=== PATIENT | male | born 1960 | race Caucasian/White ===

== ENCOUNTER 2022-07-02 13:51 | Inpatient (IN) | payer BC ==
[~2022-07-02] VITALS: Ht 190.5 cm; Wt 63.5 kg
[2022-07-02 13:51] VITALS: BP_SYST 170
[2022-07-02 14:56] LABS: LYMPHOCYTES # (AUTO) 2.1 K/uL (1.0-5.5); MONOCYTES # (AUTO) 0.2 K/uL (0.0-1.0); MONOCYTES % (AUTO) 2.6 % (1.7-9.3); NEUTROPHILS # (AUTO) 6.4 K/uL (1.8-7.7)
[2022-07-02 15:06] LABS: BASOPHILS % (AUTO) 0.4 % (0.0-2.0); EOSINOPHILS # (AUTO) 0.6 K/uL (0.0-0.4); EOSINOPHILS % (AUTO) 6.6 % (0.0-4.0); HEMATOCRIT 54.2 % (36-54); HEMOGLOBIN 18.1 g/dL (14.0-18.0); LYMPHOCYTES % (AUTO) 22.5 % (20.5-51.5); MEAN CORPUSCULAR HEMOGLOBIN 30 pg (27-31); MEAN CORPUSCULAR HGB CONC 33 % (32-36); MEAN CORPUSCULAR VOLUME 90 fL (79.0-98.0); NEUTROPHILS % (AUTO) 67.9 % (40.0-70.0); PLATELET COUNT (AUTO) 211 K/uL (130-430); RED BLOOD CELL COUNT(AUTO) 6.04 MIL/uL (4.2-6.2); WHITE BLOOD COUNT (AUTO) 9.4 K/uL (4.8-10.8)
[2022-07-02 15:24] LABS: ANION GAP 12 (5-15); CALCIUM 9.9 mg/dL (8.4-11.0); CHLORIDE 102 mmol/L (98-107); CREATININE 1.11 mg/dL (0.55-1.30); GLUCOSE 176 mg/dL (70-99); UREA NITROGEN, BLOOD 21 mg/dL (8-21)
[2022-07-02] MEDS ORDERED: NACL 0.9% 1,000 ML IV ONE ×3 (15:30→17:45)
[2022-07-02 15:40] LABS: ALANINE AMINOTRANSFERASE 37 U/L (12-78); ASPARTATE AMINOTRANSFERASE 42 U/L (10-37); C-REACTIVE PROTEIN QUANT 0.6 mg/dL (0-0.5); LACTATE DEHYDROGENASE 264 U/L (85-227); TOTAL BILIRUBIN 0.6 mg/dL (0.0-1.0)
[2022-07-02 15:42] LABS: GFR AFRICAN AMERICAN 86 mL/min (>90)
[2022-07-02] MEDS ORDERED: ALBUTEROL SULFATE 0.083% 2.5 MG/3 ML VIAL.NEB INH ONE ×3 (16:21→19:30)
[2022-07-02] MEDS ORDERED: cefTRIAXone 1 GM VIAL ONE (16:28)
[2022-07-02] MEDS ORDERED: AZITHROMYCIN 500 MG in NS 250 ML IV ONE (16:30)
[2022-07-02] MEDS ORDERED: cefTRIAXone 1 GM in D5W 50 ML IV ONE (16:30)
[2022-07-02] MEDS ORDERED: AZITHROMYCIN 500 MG/VIAL (ZITHROMAX) IV ONE (16:50)
[2022-07-02] MEDS ORDERED: LEVO75TA7 PO (17:28)
[2022-07-02] MEDS ORDERED: *HEPARIN PER PHARMACY XX ONE (17:45)
[2022-07-02 17:52] LABS: INR 1.1 (0.80-1.20); PROTHROMBIN TIME 11.2 SECS (9.5-12.5)
[2022-07-02] MEDS ORDERED: HEPARIN 25,000 UNITS/D5W 250ML 250 ML IV ONE (18:00)
[2022-07-02] MEDS ORDERED: HEPARIN SODIUM,PORCINE 5,000 UNITS/ML VIAL IVP ONE (18:00)
[2022-07-02 19:29] LABS: BILIRUBIN,URINE NEGATIVE (NEGATIVE); BLOOD, URINE NEGATIVE (NEGATIVE); CLARITY/URINE CLEAR (CLEAR); COLOR,URINE YELLOW (YELLOW); GLUCOSE,URINE NEGATIVE (NEGATIVE); KETONES,URINE NEGATIVE (NEGATIVE); LEUKOCYTE ESTERASE ,URINE NEGATIVE (NEGATIVE); NITRITE, URINE NEGATIVE (NEGATIVE); PH,URINE 6.5 (5.0-8.0); PROTEIN URINE 2+ (NEGATIVE); UROBILINOGEN,URINE 0.2 (0.2-1.0)
[2022-07-02] MEDS ORDERED: iohexoL 350 mgI/mL, 100 ML INFUS..BTL IV ONE (19:32)
[2022-07-02 19:45] LABS: BACTERIA,URINE None Seen /HPF (None Seen); RBC,URINE NONE SEEN /HPF (0-3); WBC,URINE NONE SEEN /HPF (0-3)
[2022-07-02 19:46] LABS: HYALINE CASTS, URINE 0-10 /LPF (None Seen); MUCUS,URINE None Seen /LPF (None Seen)
[2022-07-02 20:57] VITALS: BP_SYST 104
[2022-07-02 22:35] VITALS: BP_SYST 111
[2022-07-02 23:00] VITALS: BP_SYST 132
[2022-07-03] VITALS (20 sets, daily range): BP systolic 75–132
[2022-07-03 07:01] LABS: BASOPHILS # (AUTO) 0.1 K/uL (0.0-0.2); BASOPHILS % (AUTO) 0.5 % (0.0-2.0); EOSINOPHILS % (AUTO) 0.3 % (0.0-4.0); HEMATOCRIT 40.9 % (36-54); HEMOGLOBIN 13.5 g/dL (14.0-18.0); LYMPHOCYTES # (AUTO) 0.7 K/uL (1.0-5.5); LYMPHOCYTES % (AUTO) 6.8 % (20.5-51.5); MEAN CORPUSCULAR HEMOGLOBIN 30 pg (27-31); MEAN CORPUSCULAR HGB CONC 33 % (32-36); MEAN CORPUSCULAR VOLUME 90 fL (79.0-98.0); MONOCYTES # (AUTO) 0.8 K/uL (0.0-1.0); MONOCYTES % (AUTO) 7.1 % (1.7-9.3); NEUTROPHILS # (AUTO) 9.1 K/uL (1.8-7.7); NEUTROPHILS % (AUTO) 85.3 % (40.0-70.0); PLATELET COUNT (AUTO) 121 K/uL (130-430); RED BLOOD CELL COUNT(AUTO) 4.54 MIL/uL (4.2-6.2); RED CELL DISTRIBUTION WIDTH 13.7 % (9.0-15.0); WHITE BLOOD COUNT (AUTO) 10.7 K/uL (4.8-10.8)
[2022-07-03] MEDS ORDERED: IPRATROPIUM/ALBUTEROL SULFATE 3 ML AMPUL.NEB (DUONEB) ONE ×2 (08:15→15:37)
[2022-07-03 08:32] LABS: ALBUMIN 2.7 g/dL (3.4-4.8); CALCIUM 8.4 mg/dL (8.4-11.0); CREATININE 0.82 mg/dL (0.55-1.30); TOTAL BILIRUBIN 0.7 mg/dL (0.0-1.0)
[2022-07-03] MEDS: AZITHROMYCIN 250 MG in NS 250 ML IV SCH (08:43)
[2022-07-03] MEDS ORDERED: HEPARIN SODIUM,PORCINE 2000 UNITS/0.4 ML BOLUS IVP PRN (09:15)
[2022-07-03] MEDS ORDERED: HEPARIN SODIUM,PORCINE 5,000 UNITS/ML VIAL IV ONE (09:15)
[2022-07-03] MEDS ORDERED: HEPARIN SODIUM,PORCINE 3000 UNITS/0.6 ML BOLUS IVP PRN (09:15)
[2022-07-03] MEDS: HEPARIN 25,000 UNITS/D5W 250ML 250 ML IV PRN (10:05)
[2022-07-03] MEDS: MICAFUNGIN SODIUM 100 MG in NS 100 ML IV SCH (12:19)
[2022-07-03] MEDS ORDERED: PIPERACILLIN/TAZO 3.375/DEX-IS 50 ML IV SCH (14:00)
[2022-07-03] MEDS: CEFEPIME 2 GM in D5W 100 ML IV SCH (19:58)
[2022-07-03] MEDS: IPRATROPIUM/ALBUTEROL SULFATE 3 ML AMPUL.NEB (DUONEB) INH SCH (20:35)
[2022-07-04] VITALS: BP_SYST 112
[2022-07-04] MEDS: IPRATROPIUM/ALBUTEROL SULFATE 3 ML AMPUL.NEB (DUONEB) INH SCH ×4 (01:00→19:47)
[2022-07-04 08:00] VITALS: BP_SYST 153
[2022-07-04 08:39] LABS: BASOPHILS % (AUTO) 0.5 % (0.0-2.0); EOSINOPHILS # (AUTO) 0.1 K/uL (0.0-0.4); HEMATOCRIT 42.3 % (36-54); HEMOGLOBIN 13.9 g/dL (14.0-18.0); LYMPHOCYTES # (AUTO) 0.6 K/uL (1.0-5.5); LYMPHOCYTES % (AUTO) 9.6 % (20.5-51.5); MEAN CORPUSCULAR HEMOGLOBIN 30 pg (27-31); MEAN CORPUSCULAR HGB CONC 33 % (32-36); MEAN CORPUSCULAR VOLUME 90 fL (79.0-98.0); MONOCYTES # (AUTO) 0.7 K/uL (0.0-1.0); MONOCYTES % (AUTO) 10.3 % (1.7-9.3); NEUTROPHILS # (AUTO) 5.1 K/uL (1.8-7.7); NEUTROPHILS % (AUTO) 78.6 % (40.0-70.0); PLATELET COUNT (AUTO) 111 K/uL (130-430); RED CELL DISTRIBUTION WIDTH 13.6 % (9.0-15.0); WHITE BLOOD COUNT (AUTO) 6.4 K/uL (4.8-10.8)
[2022-07-04] MEDS: AZITHROMYCIN 250 MG in NS 250 ML IV SCH (09:00)
[2022-07-04] MEDS: CEFEPIME 2 GM in D5W 100 ML IV SCH ×2 (09:10→21:09)
[2022-07-04] MEDS ORDERED: NALOXONE HCL 0.4 MG/ML AMP (NARCAN) IVP PRN (10:15)
[2022-07-04] MEDS ORDERED: HYDROcodone/ACETAMIN 5-325 MG TAB (NORCO/ VICODIN) PO PRN (10:15)
[2022-07-04] MEDS: MICAFUNGIN SODIUM 100 MG in NS 100 ML IV SCH (10:48)
[2022-07-04 12:00] VITALS: BP_SYST 116
[2022-07-04 16:00] VITALS: BP_SYST 133
[2022-07-05] MEDS: HEPARIN 25,000 UNITS/D5W 250ML 250 ML IV PRN ×2 (00:32→10:49)
[2022-07-05] MEDS: IPRATROPIUM/ALBUTEROL SULFATE 3 ML AMPUL.NEB (DUONEB) INH SCH ×3 (05:55→21:14)
[2022-07-05 09:12] VITALS: BP_SYST 134
[2022-07-05] MEDS: CEFEPIME 2 GM in D5W 100 ML IV SCH ×2 (09:56→22:46)
[2022-07-05] MEDS: AZITHROMYCIN 250 MG in NS 250 ML IV SCH (10:46)
[2022-07-05 12:43] VITALS: BP_SYST 130
[2022-07-05] MEDS: MICAFUNGIN SODIUM 100 MG in NS 100 ML IV SCH (13:17)
[2022-07-05 16:00] VITALS: BP_SYST 133
[2022-07-05 21:00] VITALS: BP_SYST 152
[2022-07-06] VITALS (7 sets, daily range): BP systolic 119–145
[2022-07-06] MEDS: IPRATROPIUM/ALBUTEROL SULFATE 3 ML AMPUL.NEB (DUONEB) INH SCH ×4 (01:57→19:08)
[2022-07-06 08:31] LABS: CALCIUM 8.7 mg/dL (8.4-11.0); CREATININE 0.74 mg/dL (0.55-1.30)
[2022-07-06 08:59] LABS: BASOPHILS % (AUTO) 0.5 % (0.0-2.0); EOSINOPHILS # (AUTO) 0.2 K/uL (0.0-0.4); EOSINOPHILS % (AUTO) 3.7 % (0.0-4.0); HEMOGLOBIN 13.6 g/dL (14.0-18.0); LYMPHOCYTES # (AUTO) 0.6 K/uL (1.0-5.5); LYMPHOCYTES % (AUTO) 11.9 % (20.5-51.5); MEAN CORPUSCULAR HEMOGLOBIN 29 pg (27-31); MEAN CORPUSCULAR HGB CONC 33 % (32-36); MEAN CORPUSCULAR VOLUME 88 fL (79.0-98.0); MONOCYTES # (AUTO) 0.5 K/uL (0.0-1.0); MONOCYTES % (AUTO) 10.1 % (1.7-9.3); NEUTROPHILS # (AUTO) 3.6 K/uL (1.8-7.7); NEUTROPHILS % (AUTO) 73.8 % (40.0-70.0); PLATELET COUNT (AUTO) 106 K/uL (130-430); RED BLOOD CELL COUNT(AUTO) 4.66 MIL/uL (4.2-6.2); RED CELL DISTRIBUTION WIDTH 13.4 % (9.0-15.0); WHITE BLOOD COUNT (AUTO) 4.9 K/uL (4.8-10.8)
[2022-07-06] MEDS: CEFEPIME 2 GM in D5W 100 ML IV SCH (09:15)
[2022-07-06] MEDS: AZITHROMYCIN 250 MG in NS 250 ML IV SCH (10:18)
[2022-07-06] MEDS: MICAFUNGIN SODIUM 100 MG in NS 100 ML IV SCH (11:59)
[2022-07-06] MEDS ORDERED: FLUCONAZOLE 200 MG TABLET (DIFLUCAN) PO ONE (14:15)
[2022-07-06] MEDS ORDERED: APIXABAN 2.5 MG TABLET PO ONE (14:30)
[2022-07-06] MEDS: AMOXICILLIN/CLAVULANATE POTASSIUM 500 MG TABLET PO SCH ×2 (14:42→20:56)
[2022-07-06] MEDS ORDERED: FLUC200T PO (15:58)
[2022-07-06] MEDS ORDERED: AMOX-423 PO (15:58)
[2022-07-06] MEDS ORDERED: APIXABAN 2.5 MG TABLET PO SCH (21:00)
[2022-07-07] MEDS ORDERED: FLUCONAZOLE 200 MG TABLET (DIFLUCAN) PO SCH (09:00)
[2022-07-09 13:06] LABS: ASPERGILLUS FLAVUS Negative (Neg:<1:1); ASPERGILLUS FUMIGATUS Negative (Neg:<1:1)
== END 2022-07-06 23:38 | disposition home or self-care (01) | DRG 871 ==
LOC: SED 13:51 → SIC 17:44 → STU 07-03 21:05 → SMU 07-06 10:19
PROVIDERS: ADMIT Internal Medicine; ATTEND Internal Medicine
PROC: 5A09357 Assistance with Respiratory Ventilation, Less than 24 Consecutive Hours, Continuous Positive Airway Pressure (ICD-10-PCS; principal; 2022-07-02)
PROC: 0DH67UZ Insertion of Feeding Device into Stomach, Via Natural or Artificial Opening (ICD-10-PCS; 2022-07-02)
PROC: 3E0G76Z Introduction of Nutritional Substance into Upper GI, Via Natural or Artificial Opening (ICD-10-PCS; 2022-07-02)
DX: A41.9 Sepsis, unspecified organism (principal); E43 Unspecified severe protein-calorie malnutrition; J18.9 Pneumonia, unspecified organism; J96.01 Acute respiratory failure with hypoxia; Z68.1 Body mass index [BMI] 19.9 or less, adult; I82.412 Acute embolism and thrombosis of left femoral vein; I82.432 Acute embolism and thrombosis of left popliteal vein; I82.622 Acute embolism and thrombosis of deep veins of left upper extremity; Z20.822 Contact with and (suspected) exposure to COVID-19; R13.10 Dysphagia, unspecified; E03.9 Hypothyroidism, unspecified; Z85.810 Personal history of malignant neoplasm of tongue; Z92.21 Personal history of antineoplastic chemotherapy; Z92.3 Personal history of irradiation; Z93.1 Gastrostomy status
CPT/HCPCS: 36415; 36600; 70450-TC; 71045; 71275; 76376; 80048; 80053; 81000; 82550; 82803-TC; 83605; 83615; 83880; 84484; 85025; 85379; 85384; 85610-TC; 85730-TC; 86140; 86480; 86606; 87040; 87070-TC; 87081; 87086; 87101; 87205-TC; 92610-GN; 93005; 93306; 93970; 94640; 94660; 94760; 96361; 96365; 96367; 96375; 99291; G0378; J0456; J0692; J0696; J1644; J2248; J2543; J7030; J7050; J7060; J7613; Q9967